=== PATIENT | female | born 1970 | race African-American/Black ===

== ENCOUNTER 2021-09-23 07:54 | Emergency (ER) | payer OTHER ==
[~2021-09-23] VITALS: Ht 180.3 cm; Wt 130.9 kg
[2021-09-23 08:42] VITALS: BP 145/80; TEMP 98.4
[2021-09-23] MEDS ORDERED: MEDROL 4MG DOSPA4 MG PO (10:16)
[2021-09-23 11:13] VITALS: PULSE 88
== END 2021-09-23 11:13 | disposition home or self-care (01) ==
LOC: COL.ER 07:54
DX: M54.16 Radiculopathy, lumbar region (principal); Z28.310 Unvaccinated for COVID-19
CPT/HCPCS: J1885; J2360